=== PATIENT | male | born 1945 | race Caucasian/White ===

== ENCOUNTER 2019-03-11 06:41 | Emergency (ER) | payer OTHER ==
[~2019-03-11] VITALS: Ht 175.2 cm; Wt 81.6 kg
[~2019-03-11 06:41] MED LIST: CEPHALEXIN500 M1 PO
[2019-03-11] MEDS ORDERED: PENICILLIN-VK500 MG PO (07:25)
== END 2019-03-11 07:36 | disposition home or self-care (01) ==
LOC: ED 06:41
DX: K04.7 Periapical abscess without sinus (principal); M54.9 Dorsalgia, unspecified; R51 Headache; R61 Generalized hyperhidrosis; I10 Essential (primary) hypertension; E11.9 Type 2 diabetes mellitus without complications; F17.200 Nicotine dependence, unspecified, uncomplicated; Z88.6 Allergy status to analgesic agent

== ENCOUNTER 2019-03-13 09:10 | Inpatient (IN) | payer OTHER ==
[~2019-03-13] VITALS: Ht 175.2 cm; Wt 74.9 kg
--- NOTE | ~2019-03-13 | EKG ---
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
--- NOTE | ~2019-03-13 | CON ---
[place], [place] REPORT OF CONSULTATION NAME: SUSY KHOURY UNIT #: [id number] ROOM: 403 DOCTOR: TY FERRO DMD BIRTHDATE: [birth year] DOS: REASON FOR CONSULTATION: Lower anterior facial swelling. On exam, mild lower anterior facial swelling. The patient complained of extreme pain and tenderness. Denies any difficulty breathing or swallowing. Intraoral exam shows generalized poor oral condition with multiple areas of extreme decay, small buccal space swelling in the area of tooth #27. Teeth #26 and #27 extremely tender to palpation. Discussed treatment needed including root canal therapy or extractions. Recommend the patient stay on antibiotic therapy until discharge and seek treatment at a private dentist's office. TY FERRO DMD CM:CONSTR:REPORT OF CONSULTATION [id number] 03/27/19 0614 interface
[~2019-03-13 09:10] MED LIST changes: +PENICILLIN-VK500 MG PO
[2019-03-13 09:12] VITALS: BP 192/85
[2019-03-13 09:47] LABS: BASO # 0.1 10*3/uL (0.0-0.1); BASO % 0.4 % (0.0-1.0); EOS # 0.1 10*3/uL (0.0-0.4); EOS % 0.6 % (1.0-4.0); HEMATOCRIT 40.9 % (42.0-52.0); HEMOGLOBIN 13.7 g/dl (14.0-18.0); LYMPH % 6.5 % (27.0-41.0); MEAN CELL VOLUME 97.8 fl (80.0-94.0); MEAN CORPUSCULAR HGB 32.8 pg (27.0-31.0); MEAN CORPUSCULAR HGB CONC 33.5 g/dl (33.0-37.0); MEAN PLATELET VOLUME 9.9 fl (9.6-12.3); MONO # 1.4 10*3/uL (0.1-1.0); MONO % 8.8 % (3.0-9.0); NEUT # 13.1 10*3/uL (2.3-7.9); NEUT % 83.3 % (47.0-73.0); PLATELET COUNT AUTOMATED 226 10*3/uL (130-400); RED BLOOD COUNT 4.18 10*6/uL (4.50-5.90); RED CELL DISTRI WIDTH 12.2 % (0-14.5); WHITE BLOOD COUNT 15.7 10*3/uL (4.8-10.8)
[2019-03-13 09:59] LABS: INTERNATIONAL NORM RATIO 0.9 (2.0-3.5)
[2019-03-13 10:08] LABS: ALBUMIN 2.6 gm/dl (3.1-4.5); ALKALINE PHOSPHATASE 70 U/L (45-117); BUN 16 mg/dl (7-24); CHLORIDE 101 mmol/L (98-107); CREATININE 1.36 mg/dL (0.70-1.30); LIPASE 85 U/L (73-393); POTASSIUM 3.6 mmol/L (3.5-5.1); SGOT/AST 12 IU/L (3-35); SGPT/ALT 14 U/L (12-78); SODIUM 136 mmol/L (136-145); TOTAL PROTEIN 6.6 gm/dL (6.4-8.2)
[2019-03-13 10:10] LABS: TROPONIN I < 0.015 ng/ml (<0.045)
[2019-03-13 10:14] VITALS: BP 179/78
[2019-03-13 10:55] VITALS: BP 164/96
[2019-03-13 11:55] LABS: BILIRUBIN NEGATIVE (NEGATIVE); BLOOD 2+ (NEGATIVE); CLARITY SL CLOUDY (CLEAR); COLOR YELLOW (YELLOW); GLUCOSE NEGATIVE (NEGATIVE); KETONE 1+ (NEGATIVE); LEUKO ESTERASE NEGATIVE (NEGATIVE); NITRITE NEGATIVE (NEGATIVE); SPECIFIC GRAVITY 1.025 (1.005-1.030); UROBILINOGEN 0.2 E.U./dl (0.2-1.0)
[2019-03-13 12:05] VITALS: BP 155/70
[2019-03-13 12:29] LABS: BACTERIA 2+
--- NOTE | 2019-03-13 12:57 | NUR ---
A 73, admitted to , under the services of ROBIN Huerta DO with a diagnosis of DENTAL INFECTION SEPSIS. Chief complaint is DENTAL PAIN . Patient arrived via bed from ER. Monitor applied. Initial assessment completed. Vital signs taken and recorded. ROBIN HUERTA DO notified of admission to the unit. Orders received. See assessment for past medical history, medications and allergies. Patient and/or family oriented to unit[facility]. Clothing/patient valuable form completed. LISA IRVING
[2019-03-13 13:31] VITALS: BP 172/75
--- NOTE | 2019-03-13 15:39 | NUR ---
CONTACTED FOR DENTAL ABCESS. HE WILL BE IN TO SEE PT IN THE MORNING.
--- NOTE | 2019-03-13 15:56 | NUR ---
ID ANSWERING SERVICE NOTIFIED OF CONSULT.
--- NOTE | 2019-03-13 16:06 | NUR ---
NOTIFIED OF CONSULT WILL SEE PATIENT
--- NOTE | 2019-03-13 16:08 | NUR ---
BOTIFIED THAT CT CHEST/ABD/PELVIS CANNOT BE DONE FOR 24HRS D/T PATIENTS ALREADY RECIEVING IVP DYE TODAY FOR CT MAXILLA
[2019-03-13] MEDS ORDERED: LIPITOR80 MG PO (16:26)
[2019-03-13] MEDS ORDERED: METOPROLOL SUCC50 M1 PO (16:28)
[2019-03-13] MEDS ORDERED: LISINOPRIL40 MG PO (16:29)
[2019-03-13] MEDS ORDERED: GABAPENTIN400 MG PO (16:30)
[2019-03-13] MEDS ORDERED: FERROUS SULFAT325 MG PO (16:30)
[2019-03-13] MEDS ORDERED: ASPIRIN CHEWABL81 MG PO (16:31)
[2019-03-13] MEDS ORDERED: FUROSEMIDE40 MG PO (16:31)
[2019-03-13] MEDS ORDERED: AMLODIPINE BESY10 MG PO (16:32)
[2019-03-13] MEDS ORDERED: GLUCOPHAGE1000 MG PO (16:32)
[2019-03-13] MEDS ORDERED: CLONIDINE0.2 MG PO (16:33)
[2019-03-13] MEDS ORDERED: INDERAL XL80 MG PO (16:35)
--- NOTE | 2019-03-13 18:00 | NUR ---
NOTIFIED OF ELEVATED BP OK TO GIVE PO LOPRESSOR EARLY.
[2019-03-13 20:00] VITALS: BP 162/72
--- NOTE | 2019-03-13 22:48 | NUR ---
24 HOUR CHART CHECK DONE
[2019-03-14] VITALS: BP 164/57
[2019-03-14 06:49] LABS: BASO % 0.3 % (0.0-1.0); EOS # 0.2 10*3/uL (0.0-0.4); EOS % 1.4 % (1.0-4.0); HEMATOCRIT 41.6 % (42.0-52.0); HEMOGLOBIN 13.4 g/dl (14.0-18.0); LYMPH % 17.1 % (27.0-41.0); MEAN CORPUSCULAR HGB 32.2 pg (27.0-31.0); MEAN CORPUSCULAR HGB CONC 32.2 g/dl (33.0-37.0); MEAN PLATELET VOLUME 10.1 fl (9.6-12.3); MONO # 0.8 10*3/uL (0.1-1.0); NEUT # 8.6 10*3/uL (2.3-7.9); NEUT % 73.9 % (47.0-73.0); PLATELET COUNT AUTOMATED 270 10*3/uL (130-400); RED BLOOD COUNT 4.16 10*6/uL (4.50-5.90); RED CELL DISTRI WIDTH 12.3 % (0-14.5); WHITE BLOOD COUNT 11.7 10*3/uL (4.8-10.8)
[2019-03-14 07:14] LABS: ALBUMIN 2.4 gm/dl (3.1-4.5); ALKALINE PHOSPHATASE 62 U/L (45-117); BUN 14 mg/dl (7-24); CHLORIDE 104 mmol/L (98-107); CHOLESTEROL 118 mg/dL (<200); CREATININE 1.25 mg/dL (0.70-1.30); HDL CHOLESTEROL 28 mg/dl (40-60); LDL CHOLESTEROL 48 mg/dL (9-159); PHOSPHOROUS 3.2 mg/dL (2.5-4.9); POTASSIUM 2.9 mmol/L (3.5-5.1); SGOT/AST 6 IU/L (3-35); SGPT/ALT 12 U/L (12-78); SODIUM 140 mmol/L (136-145); TOTAL PROTEIN 6.5 gm/dL (6.4-8.2); TRIGLYCERIDES 211 mg/dl (<150); VLDL CHOLESTEROL 42 mg/dL (6-40)
[2019-03-14 07:43] LABS: ACT PARTIAL THROMBO TIME 29.9 SECONDS (20.0-32.1); INTERNATIONAL NORM RATIO 0.9 (2.0-3.5)
--- NOTE | 2019-03-14 08:00 | NUR ---
CT dept notified that prep was started.
--- NOTE | 2019-03-14 08:08 | NUR ---
NOTIFIED PHYSICAN OF POTASSIUM OF 2.9.
--- NOTE | 2019-03-14 09:00 | NUR ---
Finishing Lab Technician in to talk to patient. Patient states lives at home with alone . There are few steps in the home. Physician: doug slater [facility]acy: [facility] Home health services: none Patient's level of ADLs: INDEPENDENT Patient has working utilities: all working DME: none Follow-up physician's appointment after d/c: will be made by hospitalist nurse director upon discharge Does patient want to access PORTAL?: no Discharge plan discussed with patient, he states he lives at home, is independent in adls and ambulation, drives, he states he will be returning home when able and denies any home needs. NURIA BOSTON
--- NOTE | 2019-03-14 09:05 | NUR ---
PHYSICAL THERAPY Nursing screen received and chart review complete. Please refer PT services if decline in functional mobility presents. Thank you. Cheryl Molina,PT,DPT.
[2019-03-14 09:11] LABS: VITAMIN D, 25-HYDROXY 20.4 ng/mL (30-100)
[2019-03-14 12:00] VITALS: BP 164/60
--- NOTE | 2019-03-14 12:45 | NUR ---
NOTIFIED OF CT RESULTS.
--- NOTE | 2019-03-14 14:29 | NUR ---
Patient refusing echo today, wanted to eat. Will amend echo order for tomorrow 03/15/19.
[2019-03-14 16:00] VITALS: BP 164/63
[2019-03-14 20:00] VITALS: BP 152/70
--- NOTE | 2019-03-14 21:33 | NUR ---
TYLENOL GIVEN PER PRN ORDER FOR C/O BACK PAIN AND EAR ACHE. RATING PAIN BETWEEN 7-10. SEE EMAR. REINFORCED USE OF CALL LIGHT.
[2019-03-15] VITALS: BP 166/76
--- NOTE | 2019-03-15 01:35 | NUR ---
24 HR chart check completed.
[2019-03-15 07:54] LABS: BASO # 0.1 10*3/uL (0.0-0.1); BASO % 0.5 % (0.0-1.0); EOS # 0.3 10*3/uL (0.0-0.4); EOS % 2.9 % (1.0-4.0); HEMOGLOBIN 13.2 g/dl (14.0-18.0); LYMPH # 2.4 10*3/uL (1.3-4.4); LYMPH % 21.8 % (27.0-41.0); MEAN CELL VOLUME 99.8 fl (80.0-94.0); MEAN CORPUSCULAR HGB 32.1 pg (27.0-31.0); MEAN CORPUSCULAR HGB CONC 32.2 g/dl (33.0-37.0); MEAN PLATELET VOLUME 10.5 fl (9.6-12.3); MONO % 8.7 % (3.0-9.0); NEUT # 7.2 10*3/uL (2.3-7.9); NEUT % 65.6 % (47.0-73.0); PLATELET COUNT AUTOMATED 286 10*3/uL (130-400); RED BLOOD COUNT 4.11 10*6/uL (4.50-5.90); RED CELL DISTRI WIDTH 12.3 % (0-14.5); WHITE BLOOD COUNT 10.9 10*3/uL (4.8-10.8)
[2019-03-15 08:00] LABS: CREATININE 1.61 mg/dL (0.70-1.30); POTASSIUM 3.2 mmol/L (3.5-5.1)
--- NOTE | 2019-03-15 09:00 | NUR ---
case management visits with patient, he states he will return home when medically stable and denies any home needs
[2019-03-15 12:00] VITALS: BP 169/71
--- NOTE | 2019-03-15 12:26 | NUR ---
Nutritional Support Services Note: Dx of sepsis, htn and diabetes. Dental infection. Pt is receiving a regular diet. Eating 100% of all meals. Ht.5'9 Wt.165# No other nutrition intervention needed at this time. Will follow as needed. Abbi Brown Rdn Ld
--- NOTE | 2019-03-15 13:59 | NUR ---
PT COMPLAINED OF FEELING LIKE HE HAD A FEVER, TEMP WAS 98.4. ALSO COMPLAINED OF JAW PAIN AND WAS GIVEN PRN TYLENOL.
--- NOTE | 2019-03-15 14:30 | NUR ---
REASSESSED PT AFTER GIVING THE TYLENOL. PT STATED HE FELT A LOT BETTER NOW, 0/10 PAIN.
[2019-03-15 16:00] VITALS: BP 135/67
--- NOTE | 2019-03-15 16:00 | NUR ---
PT REFUSED BLOOD SUGARS AT 1100 AND NOW. PT STATES "MY FINGERS ARE TOO SORE."
[2019-03-15 20:00] VITALS: BP 143/60
--- NOTE | 2019-03-15 21:45 | NUR ---
PT REFUSED TO ALLOW BS CHECK. STATES HIS FINGERS ARE GETTING TO SORE.
--- NOTE | 2019-03-15 22:00 | NUR ---
MEDICATED WITH TYLENOL PER PRN ORDER FOR C/O FACE PAIN,
--- NOTE | 2019-03-15 23:30 | NUR ---
PATIENT IN BED SLEEPING. BREATHING IS EASY AND REGULAR WITHOUT DISTRESS. AROUSES EASILY. NO COMPLAINTS. CALL LIGHT WITHIN REACH, WILL MONITOR
[2019-03-16] VITALS: BP 148/68
--- NOTE | 2019-03-16 01:27 | NUR ---
24 HR chart check completed.
--- NOTE | 2019-03-16 06:26 | NUR ---
PATIENT CONTINUES TO REFUSE BLOOD SUGAR CHECKS.
[2019-03-16 06:38] LABS: ALBUMIN 2.3 gm/dl (3.1-4.5); CREATININE 1.51 mg/dL (0.70-1.30); POTASSIUM 3.8 mmol/L (3.5-5.1); TOTAL PROTEIN 6.6 gm/dL (6.4-8.2)
--- NOTE | 2019-03-16 07:44 | NUR ---
BENIGNO MADE RN AWARE OF PATIENTS ELEVATED BLOOD PRESSURE READING, RN IN TO CHECK PATIENT, MANUAL BP READING AT THIS TIME IS 166/78 PATIENT STATES HIS BP USUALLY RUNS HIGHER IN THE AM BEFORE HE TAKES HIS MEDICATIONS, AND IS ASKING TO HAVE MEDICATIONS AT THIS TIME, RN TO ADMINISTER MEDICATIONS PER DRS ORDERS
--- NOTE | 2019-03-16 07:46 | NUR ---
RESIDENTS IN TO SEE PATIENT AT THIS TIME.
[2019-03-16 08:00] VITALS: BP 166/78
--- NOTE | 2019-03-16 09:00 | NUR ---
case management visits with patient, he states he is hoping to be returning home today, patient denies any home needs, case management will follow
[2019-03-16 11:39] VITALS: BP 150/62
--- NOTE | 2019-03-16 14:00 | NUR ---
DR ANGULO IN TO SEE PATIENT
--- NOTE | 2019-03-16 14:14 | NUR ---
DR SALINAS MADE AWARE OF WHAT DR ANGULO SAID
[2019-03-16] MEDS ORDERED: AUGMENTIN 875-875 MG PO (14:31)
[2019-03-16] MEDS ORDERED: VITAMIN D5000 UNI1 PO (14:31)
--- NOTE | 2019-03-16 14:32 | NUR ---
Discharge instructions reviewed with patient/family. Patient receptive and verbalizes understanding. Follow-up care arranged. Written instructions given to patient/family. EDDA CURIEL
== END 2019-03-16 14:32 | disposition home or self-care (01) | DRG 871 ==
LOC: ED 09:10 → EDHOLD 12:25 → 4E 12:25
PROVIDERS: Internal Medicine; Nurse Practitioner Family; ADMIT Internal Medicine
DX: A41.9 Sepsis, unspecified organism (principal); N17.0 Acute kidney failure with tubular necrosis; E43 Unspecified severe protein-calorie malnutrition; K04.7 Periapical abscess without sinus; R80.9 Proteinuria, unspecified; I10 Essential (primary) hypertension; E11.42 Type 2 diabetes mellitus with diabetic polyneuropathy; E11.65 Type 2 diabetes mellitus with hyperglycemia; E87.6 Hypokalemia; D53.9 Nutritional anemia, unspecified; E78.5 Hyperlipidemia, unspecified; F17.210 Nicotine dependence, cigarettes, uncomplicated; Z71.6 Tobacco abuse counseling; Z88.6 Allergy status to analgesic agent; Z80.8 Family history of malignant neoplasm of other organs or systems; Z79.899 Other long term (current) drug therapy; Z79.82 Long term (current) use of aspirin; Z68.24 Body mass index [BMI] 24.0-24.9, adult

== ENCOUNTER 2019-09-01 21:15 | Inpatient (IN) | payer OTHER ==
[~2019-09-01] VITALS: Ht 175.2 cm; Wt 82.3 kg
[~2019-09-01 21:15] MED LIST changes: +AMLODIPINE BESY10 MG PO; +ASPIRIN CHEWABL81 MG PO; +AUGMENTIN 875-875 MG PO; +CLONIDINE0.2 MG PO; +FERROUS SULFAT325 MG PO; +FUROSEMIDE40 MG PO; +GABAPENTIN400 MG PO; +GLUCOPHAGE1000 MG PO; +INDERAL XL80 MG PO; +LIPITOR80 MG PO; +LISINOPRIL40 MG PO; +METOPROLOL SUCC50 M1 PO; +VITAMIN D5000 UNI1 PO
[2019-09-01 21:30] VITALS: BP 154/71
[2019-09-01 21:34] VITALS: BP 154/74
[2019-09-01 21:46] LABS: BASO # 0.1 10*3/uL (0.0-0.1); BASO % 0.7 % (0.0-1.0); EOS # 0.3 10*3/uL (0.0-0.4); EOS % 1.5 % (1.0-4.0); LYMPH # 2.1 10*3/uL (1.3-4.4); LYMPH % 11.6 % (27.0-41.0); MEAN CORPUSCULAR HGB 32.3 pg (27.0-31.0); MEAN CORPUSCULAR HGB CONC 33.3 g/dl (33.0-37.0); MONO # 1.2 10*3/uL (0.1-1.0); MONO % 6.7 % (3.0-9.0); NEUT # 14.2 10*3/uL (2.3-7.9); NEUT % 79.1 % (47.0-73.0); PLATELET COUNT AUTOMATED 264 10*3/uL (130-400); RED BLOOD COUNT 4.33 10*6/uL (4.50-5.90); RED CELL DISTRI WIDTH 12.5 % (0-14.5); WHITE BLOOD COUNT 17.9 10*3/uL (4.8-10.8)
[2019-09-01 22:08] LABS: ACT PARTIAL THROMBO TIME 29.3 SECONDS (20.0-32.1); INTERNATIONAL NORM RATIO 0.9 (2.0-3.5)
[2019-09-01 22:09] LABS: ALBUMIN 3.2 gm/dl (3.1-4.5); ALKALINE PHOSPHATASE 92 U/L (45-117); BUN 17 mg/dl (7-24); CHLORIDE 101 mmol/L (98-107); POTASSIUM 3.9 mmol/L (3.5-5.1); SGOT/AST 25 IU/L (3-35); SGPT/ALT 47 U/L (12-78); SODIUM 134 mmol/L (136-145)
--- NOTE | 2019-09-01 22:14 | NUR ---
THE PT WAS GIVEN A URINAL.
[2019-09-01 22:37] LABS: TROPONIN I < 0.015 ng/ml (<0.045)
[2019-09-01 23:12] LABS: BILIRUBIN NEGATIVE (NEGATIVE); BLOOD 2+ (NEGATIVE); CLARITY CLEAR (CLEAR); COLOR YELLOW (YELLOW); GLUCOSE TRACE (NEGATIVE); KETONE NEGATIVE (NEGATIVE); LEUKO ESTERASE NEGATIVE (NEGATIVE); NITRITE NEGATIVE (NEGATIVE); UROBILINOGEN 0.2 E.U./dl (0.2-1.0)
--- NOTE | 2019-09-01 23:21 | NUR ---
NURSE TO NURSE REPORT GIVEN TO THIS RN.PT RESTING IN BED WITH FAMILY AT BEDSIDE.FLUIDS INFUSING.
[2019-09-01 23:29] LABS: WBC 0-2 wbc/hpf (0-5)
[2019-09-02] VITALS (9 sets, daily range): BP systolic 104–176; BP diastolic 48–80
--- NOTE | 2019-09-02 01:37 | NUR ---
PT FAMILY UPDATED ON PT ADMISSION AND ROOM ASSIGNMENT.
--- NOTE | 2019-09-02 01:38 | NUR ---
PER GAUDENCIO CASTRO, DR CONNELL HAS BEEN CONTACTED AND IS AWARE OF THE PATIENT AND REQUESTS NOT TO BE CALLED AGAIN THIS EVENING.
--- NOTE | 2019-09-02 02:31 | NUR ---
DR. BRITO AWARE OF LACTIC ACID OF 2.8.
--- NOTE | 2019-09-02 02:40 | NUR ---
A 74, admitted to , under the services of MEGAN Sosa DO with a diagnosis of ACUTE APPENDICITIS. Chief complaint is ABDOMINAL PAIN. Patient arrived via stretcher from ER. Monitor applied. Initial assessment completed. Vital signs taken and recorded. MEGAN SOSA DO notified of admission to the unit. Orders received. See assessment for past medical history, medications and allergies. Patient and/or family oriented to 4E unit. visitation policy reviewed. Clothing/patient valuable form completed. KACY SUBRAMANIAN
--- NOTE | 2019-09-02 02:48 | NUR ---
PT DENIES ANY WOUNDS.
--- NOTE | 2019-09-02 02:56 | NUR ---
PRN MORPHINE GIVEN FOR PATIENT C/O RIGHT SIDED ABDOMINAL PAIN/TENDERNESS RATING A 10/10. CALL LIGHT IS WITHIN REACH, WILL MONITOR EFFECT.
[2019-09-02 05:08] LABS: BUN 13 mg/dl (7-24); CHLORIDE 107 mmol/L (98-107); CREATININE 1.35 mg/dL (0.70-1.30); POTASSIUM 3.8 mmol/L (3.5-5.1); SODIUM 139 mmol/L (136-145)
[2019-09-02 05:52] LABS: BASO # 0.1 10*3/uL (0.0-0.1); BASO % 0.5 % (0.0-1.0); EOS # 0.1 10*3/uL (0.0-0.4); EOS % 0.9 % (1.0-4.0); HEMATOCRIT 39.6 % (42.0-52.0); HEMOGLOBIN 13.2 g/dl (14.0-18.0); LYMPH # 2.2 10*3/uL (1.3-4.4); LYMPH % 13.8 % (27.0-41.0); MEAN CELL VOLUME 97.3 fl (80.0-94.0); MEAN CORPUSCULAR HGB 32.4 pg (27.0-31.0); MEAN CORPUSCULAR HGB CONC 33.3 g/dl (33.0-37.0); MEAN PLATELET VOLUME 10.2 fl (9.6-12.3); MONO # 1.2 10*3/uL (0.1-1.0); MONO % 7.5 % (3.0-9.0); PLATELET COUNT AUTOMATED 248 10*3/uL (130-400); RED BLOOD COUNT 4.07 10*6/uL (4.50-5.90); RED CELL DISTRI WIDTH 12.6 % (0-14.5); WHITE BLOOD COUNT 15.6 10*3/uL (4.8-10.8)
[2019-09-02 06:24] LABS: ACT PARTIAL THROMBO TIME 30.8 SECONDS (20.0-32.1); INTERNATIONAL NORM RATIO 0.9 (2.0-3.5)
--- NOTE | 2019-09-02 06:58 | NUR ---
DR. CONNELL CALLED IN, PATIENT IS TO GO FOR [facility], POSSIBLY OPEN AROUND 10AM TODAY.
--- NOTE | 2019-09-02 07:16 | NUR ---
24 HR chart check completed.
--- NOTE | 2019-09-02 09:00 | NUR ---
DR CONNELL HERE TO ASSESS PATIENT AND DISCUSS PLAN OF CARE
--- NOTE | 2019-09-02 09:20 | NUR ---
MEDICATED WITH MORPHINE IV PER PRN ORDER FOR COMPLAINTS OF ABD PAIN RATING A 10. CALL LIGHT WITHIN REACH. WILL MONITOR FOR EFFECTIVENESS
--- NOTE | 2019-09-02 09:35 | NUR ---
TRANSPORTED OFF FLOOR FOR SURGERY
--- NOTE | 2019-09-02 12:49 | NUR ---
RETURNS FROM SURGERY. AWAKE BUT DROWSY. RESPIRATIONS EASY. VSS. IV FLUIDS MAINTAINED. CALL LIGHT WITHIN REACH. SIGNIFICANT OTHER PRESENT AT BEDSIDE.
[2019-09-02] MEDS ORDERED: ECOTRIN325 M1 PO (13:35)
[2019-09-02] MEDS ORDERED: NEURONTIN600 MG PO (13:38)
[2019-09-02] MEDS ORDERED: GLUCOPHAGE500 M1 PO (13:40)
[2019-09-02] MEDS ORDERED: LIPITOR40 MG PO (13:41)
[2019-09-02] MEDS ORDERED: PROPRANOLOL HCL80 M1 PO (13:47)
[2019-09-02] MEDS ORDERED: VITAMIN B121000 MC1 PO (13:48)
[2019-09-02] MEDS ORDERED: VITAMIN B COMP1 EAC1 PO (13:50)
--- NOTE | 2019-09-02 14:00 | NUR ---
MEDS EFFECTIVE. SLEEPING
--- NOTE | 2019-09-02 15:00 | NUR ---
PATIENT REMAINS IN BED, LAYING ON LEFT SIDE. ENCOURAGED TO GET OOB, DECLINES STATING "I'M SICK". EDUCATED REGARDING NEED TO MOVE TO EXPEL GAS AND RELIEVE GAS, CONTINUES TO DECLINE STATING "I'M SICK."
--- NOTE | 2019-09-02 17:00 | NUR ---
CONTINUES TO DECLINE OOB. ALSO DECLINES BSG CHECK
--- NOTE | 2019-09-02 20:44 | NUR ---
PATIENT HAS C/O NAUSEA AND PAIN RATED 9/10 TO SURGICAL SITES. ABDOMEN IS DISTENDED AND FIRM, SX INCISIONS WELL APPROXIMATED WITH SOME ECCHYMOSIS TO UMBILICAL SITE, NORMOACTIVE BOWEL SOUNDS X4. PATIENT GIVEN ZOFRAN AND MORPHONE PER PRN ORDERS AND ADVISED TO PASS GAS. PROVIDED WITH COOL RAG TO FOREHEAD FOR COMFORT. CALL LIGHT IN REACH.
--- NOTE | 2019-09-02 21:29 | NUR ---
PRN MEDICATIONS APPEAR EFFECTIVE, PATIENT IS RESTING WITH EYES CLOSED, NONLABORED RESPIRATIONS ON 3L NC
[2019-09-03] VITALS (15 sets, daily range): BP systolic 109–156; BP diastolic 47–83
--- NOTE | 2019-09-03 01:07 | NUR ---
PT SLEEPING. SNORING RESPIRATIONS EASY AND REGULAR, CALL LIGHT IN REACH.
--- NOTE | 2019-09-03 06:33 | NUR ---
DR HOLLEY NOTIFIED PT BLADDER SCAN FOR 170CC AND PT STATES THAT HE HAS NOT BEEN ABLE TO URINATE.
[2019-09-03 06:48] LABS: ALBUMIN 2.1 gm/dl (3.1-4.5); CREATININE 2.58 mg/dL (0.70-1.30); PHOSPHOROUS 2.9 mg/dL (2.5-4.9); TOTAL PROTEIN 5.5 gm/dL (6.4-8.2)
[2019-09-03 06:54] LABS: POTASSIUM 4.8 mmol/L (3.5-5.1)
--- NOTE | 2019-09-03 07:35 | NUR ---
Occupational Therapy: Screen and referral received for occupational therapy evaluation. THank you, Anika Jones OTR/L
--- NOTE | 2019-09-03 07:43 | NUR ---
PHYSICAL THERAPY Screen and PT eval received will follow thank you Leandra Brenner PT
--- NOTE | 2019-09-03 08:05 | NUR ---
called to review new orders he placed. Also spoke about the nurse to nurse report I received regarding no recorded urine output since mccarthy was removed. Will follow up and bladder scan per physician.
[2019-09-03 08:54] LABS: HEMATOCRIT 24.7 % (42.0-52.0); HEMOGLOBIN 7.9 g/dl (14.0-18.0); MEAN CELL VOLUME 99.6 fl (80.0-94.0); MEAN CORPUSCULAR HGB 31.9 pg (27.0-31.0); PLATELET COUNT AUTOMATED 226 10*3/uL (130-400); RED BLOOD COUNT 2.48 10*6/uL (4.50-5.90); RED CELL DISTRI WIDTH 12.9 % (0-14.5); WHITE BLOOD COUNT 17.9 10*3/uL (4.8-10.8)
--- NOTE | 2019-09-03 09:00 | NUR ---
Bunch Maker Hand in to talk to patient. Patient states lives at home with alone. There are no steps in the home. Physician: ciro leigh [facility] [place] [facility]: none Patient's level of ADLs: INDEPENDENT Patient has working utilities: all working DME: none Follow-up physician's appointment after d/c: will be made by hospitalist nurse director upon discharge Does patient want to access PORTAL?: no Discharge plan discussed with patient, forest nursery supervisor present, patient states he lives at home alone, with help from his forest nursery supervisor, he states he is independent in adls and ambulation, drives, he states he will return home when medically stable and denies any home need, , case management will follow. NURIA BOSTON
[2019-09-03 09:34] LABS: PLATELET SUFFICIENCY NORMAL (NORMAL); POLYCHROMASIA SLIGHT; TOTAL CELLS COUNTED 100 #CELLS
--- NOTE | 2019-09-03 13:00 | NUR ---
Bladder scanned patient for 402ml. Encouraged patient to change positions and when he sat up he said "it feels like I have to go." Asked patient to sit on commode and see if he can void on his own to avoid getting cathed. When patient ambulated he began belching and coughing. Called to updated on patients status. Per physician, let patient try to void on his own.
--- NOTE | 2019-09-03 13:00 | NUR ---
Patient refuses blood sugar checks.
--- NOTE | 2019-09-03 13:20 | NUR ---
Was called to patients room. notified me that patient voided and returned to bed with her assistance. Student nurse scanned for PVR.
--- NOTE | 2019-09-03 13:38 | NUR ---
PHYSICAL THERAPY Attempted to see pt for evaluation pt declining at this time states he just returned to the bed from the bathroom and is feelin very nauseated. Spoke with robert barreto above and that pt is nauseated will follow in the AM Leandra Brenner PT
--- NOTE | 2019-09-03 13:38 | NUR ---
Occupational Therapy evaluation offered, but patient declined w/ c/o nausea. OTR will recheck at a later date per patient's request. Chiqui James OTR/l
--- NOTE | 2019-09-03 13:55 | NUR ---
called for follow to check patients voiding status. Updated him and said I would call back with PVR amount.
--- NOTE | 2019-09-03 14:02 | NUR ---
Spoke with regarding patients PVR of 120ml.
--- NOTE | 2019-09-03 14:29 | NUR ---
Nutritional Support Services Note: Pt is s/p appendectomy. Tolerating po intake, although he states he does not have an appetite right now. He receives a regular diet as ordered. Will provide small snacks throught out the day. will continue to follow. Abbi Brown Rdn Ld
--- NOTE | 2019-09-03 16:53 | NUR ---
Morphine given per patient request for c/o abdominal pain and Zofran given per patient request for c/o nausea. Will monitor.
--- NOTE | 2019-09-03 17:30 | NUR ---
Morphine and Zofran effective. Patient satisfied with no signs of distress.
--- NOTE | 2019-09-03 18:30 | NUR ---
Notified of critical Hgb. See labs. No new orders at this time, physician to review.
[2019-09-03 18:33] LABS: HEMATOCRIT 21.8 % (42.0-52.0); MEAN CELL VOLUME 101.4 fl (80.0-94.0); MEAN CORPUSCULAR HGB 32.1 pg (27.0-31.0); MEAN CORPUSCULAR HGB CONC 31.7 g/dl (33.0-37.0); MEAN PLATELET VOLUME 9.7 fl (9.6-12.3); PLATELET COUNT AUTOMATED 188 10*3/uL (130-400); RED BLOOD COUNT 2.15 10*6/uL (4.50-5.90)
--- NOTE | 2019-09-03 18:33 | NUR ---
Patient up in chair to eat dinner. Tolerated well.
[2019-09-03 18:37] LABS: HEMOGLOBIN 6.9 g/dl (14.0-18.0)
[2019-09-03 18:56] LABS: TOTAL CELLS COUNTED 100 #CELLS
[2019-09-03 18:58] LABS: PLATELET SUFFICIENCY NORMAL (NORMAL)
[2019-09-04] VITALS (13 sets, daily range): BP systolic 120–179; BP diastolic 52–83
[2019-09-04 02:24] LABS: BASO % 0.2 % (0.0-1.0); EOS % 0.1 % (1.0-4.0); HEMATOCRIT 21.9 % (42.0-52.0); HEMOGLOBIN 7.1 g/dl (14.0-18.0); LYMPH # 1.5 10*3/uL (1.3-4.4); LYMPH % 9.4 % (27.0-41.0); MEAN CORPUSCULAR HGB 31.6 pg (27.0-31.0); MEAN CORPUSCULAR HGB CONC 32.4 g/dl (33.0-37.0); MEAN PLATELET VOLUME 9.6 fl (9.6-12.3); MONO # 1.5 10*3/uL (0.1-1.0); MONO % 9.3 % (3.0-9.0); NEUT # 12.8 10*3/uL (2.3-7.9); NEUT % 80.2 % (47.0-73.0); PLATELET COUNT AUTOMATED 167 10*3/uL (130-400); RED BLOOD COUNT 2.25 10*6/uL (4.50-5.90); RED CELL DISTRI WIDTH 13.9 % (0-14.5); WHITE BLOOD COUNT 15.9 10*3/uL (4.8-10.8)
[2019-09-04 02:25] LABS: MEAN CELL VOLUME 97.3 fl (80.0-94.0)
--- NOTE | 2019-09-04 05:00 | NUR ---
PATIENT HYPOXIC DURING BLOOD TRANSFUSION. O2 SAT DROPPED DOWN TO LOW 80'S. DR. FLOR INTO SEE PATIENT. RESPIRATORY IN TO SEE PATIENT ALSO. NEW ORDER FOR DR. TANNER CONSULT FOR HYPOXIA DURING TRANSFUSION AND PATIENT PUT ON NON-REBREATHER MASK TO FINISH INFUSING BLOOD. WILL CONTINUE TO MONITOR.
--- NOTE | 2019-09-04 06:18 | NUR ---
DR. TANNER NOTIFIED OF CONSULT FOR PATIENT FOR HYPOXIA AFTER BLOOD TRANSFUSION.
--- NOTE | 2019-09-04 06:45 | NUR ---
BLOOD TRANSFUSION FINISHED. PATIENT REMAINS ON NON-REBREATHER AT 100% UNTIL RESPIRATORY REASSESES. NO SIGNS OR SYMPTOMS OF DISTRESS AT THIS TIME. WILL CONTINUE TO MONITOR. CALL LIGHT IN REACH.
--- NOTE | 2019-09-04 08:30 | NUR ---
patient moved to CCU, case management will see at another time
--- NOTE | 2019-09-04 08:43 | NUR ---
DR VILLA HERE - PT IN RADIOLOGY
--- NOTE | 2019-09-04 08:54 | NUR ---
PT UP IN CHAIR AFTER KUB - DR KWAN HERE - PT ENCOURAGED TO TAKE DEEP BREATHS & BLOW IT OUT
[2019-09-04 09:24] LABS: BASO % 0.3 % (0.0-1.0); EOS % 0.3 % (1.0-4.0); HEMATOCRIT 25.2 % (42.0-52.0); HEMOGLOBIN 8.2 g/dl (14.0-18.0); LYMPH # 1.5 10*3/uL (1.3-4.4); LYMPH % 9.3 % (27.0-41.0); MEAN CELL VOLUME 95.8 fl (80.0-94.0); MEAN CORPUSCULAR HGB 31.2 pg (27.0-31.0); MEAN CORPUSCULAR HGB CONC 32.5 g/dl (33.0-37.0); MEAN PLATELET VOLUME 9.8 fl (9.6-12.3); MONO # 1.2 10*3/uL (0.1-1.0); MONO % 7.6 % (3.0-9.0); NEUT # 12.9 10*3/uL (2.3-7.9); NEUT % 81.7 % (47.0-73.0); PLATELET COUNT AUTOMATED 168 10*3/uL (130-400); RED BLOOD COUNT 2.63 10*6/uL (4.50-5.90); WHITE BLOOD COUNT 15.7 10*3/uL (4.8-10.8)
[2019-09-04 09:55] LABS: CREATININE 2.67 mg/dL (0.70-1.30)
--- NOTE | 2019-09-04 10:38 | NUR ---
PHYSICAL THERAPY Pt transfered to [facility]- with Hypoxia after blood transfusion will require new orders for PT when medically stable, thank you Leandra Brenner PT
--- NOTE | 2019-09-04 11:00 | NUR ---
Occupational therapy received when patient was admitted to the fourth floor. Patient has since been admitted to the ICCU. Will need new orders when patient is medically appropriate. Thank you. Gogo Hidalgo, OTR/L
--- NOTE | 2019-09-04 12:05 | NUR ---
PATIENT INSTRUCTED ON FLUTTER Q2 & I/S Q1 ACHIEVING AN INITIAL VOLUME OF 1000 X 12 X 1, GOOD EFFORT.
--- NOTE | 2019-09-04 12:11 | NUR ---
PLACED ON NC5L AFTER UP TO BSC INDEPENDENTLY TO VOID LARGE AMOUNT
--- NOTE | 2019-09-04 12:16 | NUR ---
PLACE ON NC6L HIGH FLOW WITH SATS 88-91%.. SITTING UP IN CHAIR - FAMILY HERE
--- NOTE | 2019-09-04 14:49 | NUR ---
SLEEPING IN BED AFTER UP IN CHAIR FOR 6 HOURS
--- NOTE | 2019-09-04 15:42 | NUR ---
Shift chart check completed.
[2019-09-04 16:03] LABS: ABG BASE EXCESS -3.5 mmol/L (-2.0-2.0); ARTERIAL BLOOD GAS PH 7.361 (7.35-7.45)
[2019-09-04 16:17] LABS: BASO % 0.3 % (0.0-1.0); EOS # 0.3 10*3/uL (0.0-0.4); EOS % 1.6 % (1.0-4.0); HEMOGLOBIN 8.4 g/dl (14.0-18.0); LYMPH # 1.7 10*3/uL (1.3-4.4); LYMPH % 10.9 % (27.0-41.0); MEAN CELL VOLUME 96.3 fl (80.0-94.0); MEAN CORPUSCULAR HGB 31.1 pg (27.0-31.0); MEAN CORPUSCULAR HGB CONC 32.3 g/dl (33.0-37.0); MONO # 1.1 10*3/uL (0.1-1.0); MONO % 6.8 % (3.0-9.0); NEUT # 12.3 10*3/uL (2.3-7.9); NEUT % 79.9 % (47.0-73.0); PLATELET COUNT AUTOMATED 173 10*3/uL (130-400); RED CELL DISTRI WIDTH 16.1 % (0-14.5); WHITE BLOOD COUNT 15.4 10*3/uL (4.8-10.8)
--- NOTE | 2019-09-04 16:18 | NUR ---
CT PREP STARTED PER PROTOCOL
[2019-09-04 16:31] LABS: ALBUMIN 2.1 gm/dl (3.1-4.5); CREATININE 2.64 mg/dL (0.70-1.30); POTASSIUM 4.1 mmol/L (3.5-5.1)
--- NOTE | 2019-09-04 16:40 | NUR ---
PATIENT SLEEPING AFTER DRINKING 1ST BOTTLE OF CT PREP
--- NOTE | 2019-09-04 16:52 | NUR ---
DR CIRO PINEDA WITH LAB RESULTS
--- NOTE | 2019-09-04 17:45 | NUR ---
CT PREP COMPLETED
--- NOTE | 2019-09-04 18:20 | NUR ---
PATIENT RETURNED FROM CT WITH PULSE OX 74% ON HIGH FLOW NASAL CANNULA AT 15L SATS WOULD NOT HOLD DURING CT SCAN. RN SLOWLY UPPED OXYGEN TO VENTURI MASK PATIENT WAS BREATHING THROUGH HIS MOUTH. 40% VENTURI BROUGHT O2 BACK TO 89-91%... PATIENT RESP HAVE SLOWED BACK TO MID 20'S FROM UPPER 30'S UPON RETURN
--- NOTE | 2019-09-04 18:27 | NUR ---
DR VILLA CALLED TO CHECK IN ON PATIENTS - UPDATED ON PULSE OX & AWAITING CT RESULT - NEW LAB RESULTS REVIEWED
--- NOTE | 2019-09-04 19:32 | NUR ---
DR TANNER CALLED TO GIVE CT REPORT AFTER HE WAS CALLED BY [facility]. ORDER TO TRANSFER PATIENT OUT - DR VILLA CALLED AND HE SAID TO CALL SO DR ROTHMAN COULD MAKE THE ARRANGEMENTS HE AGREED WITH THE TRANSFER. DR ROTHMAN CALLED AND HE WILL MAKE TRANSFER ARRANGEMENTS. DR CONNELL THEN CALLED AND GIVEN THE REPORT & THAT THEY WANT HIM TRANSFERRED OUT - HE SAID THE PATIENT DOES NOT NEED TO BE TRANSFERRED OUT. TOLD HIM HE WOULD HAVE TO TALK TO DR ROTHMAN & GAVE HIM THE NUMBER. TRIAGE NURSE LARON CALLED AND UPDATED ON CONDITION & RESULTS AND THAT DR CONNELL DOES NOT WANT HIM TRANSFERRED
--- NOTE | 2019-09-04 19:35 | NUR ---
02 SAT DROPPED TO 73% ON 40% VENTURI MASK. RN IN WITH PATIENT. INCREASED TO 50% VENTURI AND STILL ONLY IMPROVED TO 77%, RN APPLIED [id number] AT 15L, PATIENT SLOWLY IMPROVED TO 91%
--- NOTE | 2019-09-04 20:05 | NUR ---
SPOKE WITH DR ROTHMAN REGARDING PATIENT DROPPING SATURATION, STATES THAT IF PATIENT IS OKAY AND AGREEABLE TO INTUBATION THEN INTUBATE. 2 RN'S TO VERIFY THIS WITH PATIENT, HE STATES HE IS AGREEABLE TO IT IF HE NEEDS IT.
--- NOTE | 2019-09-04 20:45 | NUR ---
Infomed consent obtained from patient by Dr. MOODY for elective intubation. Patient intubated with 8 Greenlandic endotracheal tube orally X 1 attempts. Patient sedated with CHANDA AND PROPOFOL Respiratory therapy at bedside. Crash cart with emergency drugs available. Endotracheal tube inflated with 10cc's. Lungs auscultated for equality of breath sounds. Tube secured with Tube tamer at 24 AT LIP Patient tolerated procedure . Portable chest X-ray obtained and reviewed for tube placement. Patient connected to ventilator CMV mode, 550 tidal volume, 100 FIO2, 5 PEEP, and pressure support. NATAN CAIN
--- NOTE | 2019-09-04 21:15 | NUR ---
ART LINE INSERTED BY ANESTHESIOLOGIST SHIRLENE MOODY, PATIENT TOLERATED WELL. HEPARIN PRESSURE BAG INITIATED AND CONNECTED TO MONITOR. WAVEFORM GOOD. NO ACTIVE BLEEDING FROM SITE
--- NOTE | 2019-09-04 21:35 | NUR ---
CENTRAL LINE PLACED BY ANESTHESIOLOGIST SHIRLENE MOODY. PATIENT TOLERATED WELL. DRESSING APPLIED. BLEEDING CONTROLLED.
--- NOTE | 2019-09-04 21:36 | NUR ---
VERSED 5MG GIVEN PER ORDER OF ANESTHESIOLOGIST SHIRLENE MOODY, PATIENT AGITATED, PULLING AT RESTRAINTS, BLOOD PRESSURE HAS INCREASED.
--- NOTE | 2019-09-04 22:00 | NUR ---
FOLAEY CATHETER INSERTED UNDER STERILE TECHNIQUE, PATIENT TOLERATED WELL. PLACEMENT VERIFIED BY IMMEDIATE RETURN OF PALE YELLOW URINE
[2019-09-04 22:48] LABS: ABG BASE EXCESS -3.4 mmol/L (-2.0-2.0); ARTERIAL BLOOD GAS PH 7.3 (7.35-7.45)
[2019-09-04 23:08] LABS: CREATININE 2.56 mg/dL (0.70-1.30); POTASSIUM 4.5 mmol/L (3.5-5.1); TOTAL PROTEIN 5.8 gm/dL (6.4-8.2)
--- NOTE | 2019-09-04 23:37 | NUR ---
SPOKE WITH [facility], THEY ARE REQUESTING DEMOGRAPHICS TO BE FAXED.
[2019-09-04 23:44] LABS: BASO % 0.2 % (0.0-1.0); EOS # 0.3 10*3/uL (0.0-0.4); HEMOGLOBIN 7.5 g/dl (14.0-18.0); MEAN CELL VOLUME 95.8 fl (80.0-94.0); MEAN CORPUSCULAR HGB 31.3 pg (27.0-31.0); MEAN CORPUSCULAR HGB CONC 32.6 g/dl (33.0-37.0); MEAN PLATELET VOLUME 10.3 fl (9.6-12.3); MONO # 0.9 10*3/uL (0.1-1.0); MONO % 6.2 % (3.0-9.0); NEUT # 11.6 10*3/uL (2.3-7.9); NEUT % 83.7 % (47.0-73.0); PLATELET COUNT AUTOMATED 183 10*3/uL (130-400); RED CELL DISTRI WIDTH 15.7 % (0-14.5); WHITE BLOOD COUNT 13.8 10*3/uL (4.8-10.8)
[2019-09-05 01:35] VITALS: BP 111/58
[2019-09-05 02:00] VITALS: BP 115/51
--- NOTE | 2019-09-05 02:26 | NUR ---
PATIENTS DAUGHTER BRITTANY AWARE OF TRANSFER VIA HELIC[facility]TER TO [facility].
[2019-09-05 02:28] VITALS: BP 108/61
--- NOTE | 2019-09-05 03:10 | NUR ---
[facility] HERE TO TRANSFER PATIENT, SWITCHING TO THEIR GEAR.
--- NOTE | 2019-09-05 03:15 | NUR ---
PATIENT TRANSPORTED OFF THE FLOOR VIA [facility], ALL BELONGINGS WERE SENT WITH PATIENTS DAUGHTER AND PATIENTS GIRLFRIEND.
--- NOTE | 2019-09-05 03:35 | NUR ---
REPORT CALLED TO ERIKA AT [facility]. CALL BACK NUMBER GIVEN
== END 2019-09-05 03:50 | disposition short-term general hospital (02) | DRG 338 ==
LOC: ED 21:15 → 4E 09-02 01:13 → EDHOLD 09-02 01:13 → ICCU 09-02 01:13 → 4E 09-02 01:31 → ICCU 09-04 08:11
PROVIDERS: Emergency Medicine Emergency Medical Services; Internal Medicine; Internal Medicine Critical Care Medicine; Nurse Practitioner Family; Student in an Organized Health Care Education/Training Program; Surgery; ADMIT Internal Medicine
PROC: 0DTJ4ZZ Resection of Appendix, Percutaneous Endoscopic Approach (ICD-10-PCS; principal; 2019-09-02)
PROC: 30233N1 Transfusion of Nonautologous Red Blood Cells into Peripheral Vein, Percutaneous Approach (ICD-10-PCS; 2019-09-03)
PROC: B548ZZA Ultrasonography of Superior Vena Cava, Guidance (ICD-10-PCS; 2019-09-04)
PROC: 03HY32Z Insertion of Monitoring Device into Upper Artery, Percutaneous Approach (ICD-10-PCS; 2019-09-04)
PROC: 4A133J1 Monitoring of Arterial Pulse, Peripheral, Percutaneous Approach (ICD-10-PCS; 2019-09-04)
PROC: 02HV33Z Insertion of Infusion Device into Superior Vena Cava, Percutaneous Approach (ICD-10-PCS; 2019-09-04)
PROC: 4A133B1 Monitoring of Arterial Pressure, Peripheral, Percutaneous Approach (ICD-10-PCS; 2019-09-04)
PROC: 5A1935Z Respiratory Ventilation, Less than 24 Consecutive Hours (ICD-10-PCS; 2019-09-04)
PROC: 0BH17EZ Insertion of Endotracheal Airway into Trachea, Via Natural or Artificial Opening (ICD-10-PCS; 2019-09-04)
DX: K35.32 Acute appendicitis with perforation, localized peritonitis, and gangrene, without abscess (principal); N17.0 Acute kidney failure with tubular necrosis; J96.01 Acute respiratory failure with hypoxia; J18.9 Pneumonia, unspecified organism; E87.1 Hypo-osmolality and hyponatremia; E87.2 Acidosis; K91.840 Postprocedural hemorrhage of a digestive system organ or structure following a digestive system procedure; N18.3 Chronic kidney disease, stage 3 (moderate); D64.9 Anemia, unspecified; R80.1 Persistent proteinuria, unspecified; E11.65 Type 2 diabetes mellitus with hyperglycemia; I12.9 Hypertensive chronic kidney disease with stage 1 through stage 4 chronic kidney disease, or unspecified chronic kidney disease; E11.22 Type 2 diabetes mellitus with diabetic chronic kidney disease; E11.42 Type 2 diabetes mellitus with diabetic polyneuropathy; E78.5 Hyperlipidemia, unspecified; F17.210 Nicotine dependence, cigarettes, uncomplicated; E55.9 Vitamin D deficiency, unspecified; K80.20 Calculus of gallbladder without cholecystitis without obstruction; Z71.6 Tobacco abuse counseling; Z88.5 Allergy status to narcotic agent; Z79.899 Other long term (current) drug therapy; Z79.82 Long term (current) use of aspirin; Z85.9 Personal history of malignant neoplasm, unspecified

== ENCOUNTER 2020-02-19 02:21 | Emergency (ER) | payer MEDICARE ==
[~2020-02-19] VITALS: Wt 80.5 kg
[~2020-02-19 02:21] MED LIST changes: +ECOTRIN325 M1 PO; +GLUCOPHAGE500 M1 PO; +LIPITOR40 MG PO; +NEURONTIN600 MG PO; +PROPRANOLOL HCL80 M1 PO; +VITAMIN B COMP1 EAC1 PO; +VITAMIN B121000 MC1 PO
[2020-02-19 02:44] LABS: BASO # 0.1 10*3/uL (0.0-0.1); BASO % 0.5 % (0.0-1.0); EOS # 0.1 10*3/uL (0.0-0.4); EOS % 0.6 % (1.0-4.0); HEMATOCRIT 38.6 % (42.0-52.0); LYMPH # 1.4 10*3/uL (1.3-4.4); LYMPH % 8.2 % (27.0-41.0); MEAN CELL VOLUME 97.7 fl (80.0-94.0); MEAN CORPUSCULAR HGB 30.9 pg (27.0-31.0); MEAN CORPUSCULAR HGB CONC 31.6 g/dl (33.0-37.0); MONO # 1.4 10*3/uL (0.1-1.0); NEUT # 14.3 10*3/uL (2.3-7.9); NEUT % 82.3 % (47.0-73.0); PLATELET COUNT AUTOMATED 222 10*3/uL (130-400); RED BLOOD COUNT 3.95 10*6/uL (4.50-5.90); RED CELL DISTRI WIDTH 12.9 % (0-14.5); WHITE BLOOD COUNT 17.4 10*3/uL (4.8-10.8)
[2020-02-19 02:59] LABS: ALBUMIN 3.4 gm/dl (3.1-4.5); CREATININE 2.11 mg/dL (0.70-1.30); POTASSIUM 3.2 mmol/L (3.5-5.1); TOTAL PROTEIN 7.4 gm/dL (6.4-8.2)
[2020-02-19] MEDS ORDERED: PEPCID40 MG PO (04:52)
== END 2020-02-19 05:20 | disposition home or self-care (01) ==
LOC: ED 02:21
PROVIDERS: Emergency Medicine
DX: K52.9 Noninfective gastroenteritis and colitis, unspecified (principal); A05.9 Bacterial foodborne intoxication, unspecified; I10 Essential (primary) hypertension; E11.9 Type 2 diabetes mellitus without complications; E78.5 Hyperlipidemia, unspecified; Z88.8 Allergy status to other drugs, medicaments and biological substances; Z79.899 Other long term (current) drug therapy; Z79.82 Long term (current) use of aspirin; Z79.84 Long term (current) use of oral hypoglycemic drugs

== ENCOUNTER 2020-09-28 05:47 | Emergency (ER) | payer MEDICARE ==
[~2020-09-28 05:47] MED LIST changes: +PEPCID40 MG PO
[2020-09-28 06:38] LABS: BASO # 0.1 10*3/uL (0.0-0.1); BASO % 0.6 % (0.0-1.0); EOS # 0.1 10*3/uL (0.0-0.4); EOS % 0.6 % (1.0-4.0); HEMATOCRIT 37.1 % (42.0-52.0); LYMPH # 1.1 10*3/uL (1.3-4.4); LYMPH % 11.9 % (27.0-41.0); MEAN CELL VOLUME 96.4 fl (80.0-94.0); MEAN CORPUSCULAR HGB 31.9 pg (27.0-31.0); MEAN CORPUSCULAR HGB CONC 33.2 g/dl (33.0-37.0); MEAN PLATELET VOLUME 9.6 fl (9.6-12.3); MONO # 0.8 10*3/uL (0.1-1.0); MONO % 8.1 % (3.0-9.0); NEUT # 7.5 10*3/uL (2.3-7.9); NEUT % 78.5 % (47.0-73.0); PLATELET COUNT AUTOMATED 219 10*3/uL (130-400); RED BLOOD COUNT 3.85 10*6/uL (4.50-5.90); RED CELL DISTRI WIDTH 12.6 % (0-14.5); WHITE BLOOD COUNT 9.5 10*3/uL (4.8-10.8)
[2020-09-28 06:53] LABS: ALBUMIN 2.8 gm/dl (3.1-4.5); ALKALINE PHOSPHATASE 87 U/L (45-117); BUN 17 mg/dl (7-24); CHLORIDE 102 mmol/L (98-107); CREATININE 1.78 mg/dL (0.70-1.30); LIPASE 78 U/L (73-393); POTASSIUM 3.8 mmol/L (3.5-5.1); SGOT/AST 29 IU/L (3-35); SGPT/ALT 43 U/L (12-78); SODIUM 136 mmol/L (136-145); TOTAL PROTEIN 6.9 gm/dL (6.4-8.2)
[2020-09-28 06:55] LABS: TROPONIN I < 0.015 ng/ml (<0.045)
[2020-09-28 08:01] LABS: ACT PARTIAL THROMBO TIME 26.5 SECONDS (20.0-32.1); INTERNATIONAL NORM RATIO 0.9 (2.0-3.5)
[2020-09-28 08:21] LABS: BILIRUBIN Negative (Negative); BLOOD Trace-Lysed (Negative); CLARITY Clear (Clear); COLOR Yellow (Yellow); GLUCOSE Negative (Negative); KETONE Negative (Negative); LEUKO ESTERASE Negative (Negative); NITRITE Negative (Negative); SPECIFIC GRAVITY 1.015 (1.001-1.030); UROBILINOGEN 0.2 E.U./dl (0.0-1.0)
[2020-09-28 08:34] LABS: PH 8.5 (4.5-8.0)
[2020-09-28] MEDS ORDERED: ZOFRAN4 MG PO (09:00)
== END 2020-09-28 09:03 | disposition home or self-care (01) ==
LOC: ED 05:47
PROVIDERS: Emergency Medicine
DX: K80.80 Other cholelithiasis without obstruction (principal); R19.7 Diarrhea, unspecified; E11.22 Type 2 diabetes mellitus with diabetic chronic kidney disease; I12.9 Hypertensive chronic kidney disease with stage 1 through stage 4 chronic kidney disease, or unspecified chronic kidney disease; N18.9 Chronic kidney disease, unspecified; E11.40 Type 2 diabetes mellitus with diabetic neuropathy, unspecified; F17.210 Nicotine dependence, cigarettes, uncomplicated; Z90.49 Acquired absence of other specified parts of digestive tract; Z88.6 Allergy status to analgesic agent; Z79.899 Other long term (current) drug therapy; Z79.82 Long term (current) use of aspirin; E78.5 Hyperlipidemia, unspecified; Z98.890 Other specified postprocedural states

== ENCOUNTER → 2020-10-30 | Outpatient (CLI) | payer OTHER ==
[~2020-10-30] MED LIST changes: +ZOFRAN4 MG PO
== END | disposition home or self-care (01) ==
LOC: US 10:46
PROVIDERS: ATTEND Nurse Practitioner Family
DX: N28.1 Cyst of kidney, acquired (principal); I10 Essential (primary) hypertension; E11.9 Type 2 diabetes mellitus without complications; R80.9 Proteinuria, unspecified; R94.4 Abnormal results of kidney function studies

== ENCOUNTER 2020-11-26 12:49 | Inpatient (IN) | payer MEDICARE ==
[~2020-11-26] VITALS: Ht 175.2 cm; Wt 93.5 kg
[2020-11-26 12:56] VITALS: BP 179/79
[2020-11-26 13:22] LABS: BASO # 0.1 10*3/uL (0.0-0.1); BASO % 0.4 % (0.0-1.0); EOS # 0.1 10*3/uL (0.0-0.4); EOS % 0.9 % (1.0-4.0); HEMATOCRIT 39.3 % (42.0-52.0); LYMPH # 1.9 10*3/uL (1.3-4.4); LYMPH % 13.9 % (27.0-41.0); MEAN CELL VOLUME 94.7 fl (80.0-94.0); MEAN CORPUSCULAR HGB 31.3 pg (27.0-31.0); MEAN CORPUSCULAR HGB CONC 33.1 g/dl (33.0-37.0); MEAN PLATELET VOLUME 9.9 fl (9.6-12.3); MONO # 0.6 10*3/uL (0.1-1.0); MONO % 4.3 % (3.0-9.0); NEUT # 10.9 10*3/uL (2.3-7.9); NEUT % 80.1 % (47.0-73.0); PLATELET COUNT AUTOMATED 218 10*3/uL (130-400); RED BLOOD COUNT 4.15 10*6/uL (4.50-5.90); RED CELL DISTRI WIDTH 12.4 % (0-14.5); WHITE BLOOD COUNT 13.6 10*3/uL (4.8-10.8)
[2020-11-26 13:30] VITALS: BP 162/71
[2020-11-26 13:32] LABS: ACT PARTIAL THROMBO TIME 26.4 SECONDS (20.0-32.1)
[2020-11-26 13:37] LABS: ALBUMIN 2.9 gm/dl (3.1-4.5); ALKALINE PHOSPHATASE 127 U/L (45-117); BUN 21 mg/dl (7-24); CHLORIDE 102 mmol/L (98-107); CREATININE 2.09 mg/dL (0.70-1.30); LIPASE 144 U/L (73-393); POTASSIUM 3.4 mmol/L (3.5-5.1); SGOT/AST 478 IU/L (3-35); SGPT/ALT 221 U/L (12-78); SODIUM 136 mmol/L (136-145); TOTAL PROTEIN 7.5 gm/dL (6.4-8.2)
[2020-11-26 13:38] LABS: TROPONIN I < 0.015 ng/ml (<0.045)
[2020-11-26 14:00] VITALS: BP 148/62
[2020-11-26 14:44] LABS: BILIRUBIN Negative (Negative); BLOOD Trace-Lysed (Negative); CLARITY Clear (Clear); COLOR Yellow (Yellow); GLUCOSE 1+ (Negative); KETONE Negative (Negative); LEUKO ESTERASE Negative (Negative); NITRITE Negative (Negative); PH 7.5 (4.5-8.0); UROBILINOGEN 0.2 E.U./dl (0.0-1.0)
[2020-11-26 14:56] LABS: EPITHELIAL CELLS 0-2; WBC 0-2 wbc/hpf (0-5)
[2020-11-26 19:30] VITALS: BP 166/68
[2020-11-26] MEDS ORDERED: ASPIRIN ADULT L81 M1 PO (23:26)
[2020-11-26] MEDS ORDERED: CLONIDINE1 EAC1 T (23:27)
[2020-11-26 23:30] VITALS: BP 154/74
[2020-11-27] VITALS (13 sets, daily range): BP systolic 135–208; BP diastolic 47–96
[2020-11-27 05:58] LABS: ALBUMIN 2.5 gm/dl (3.1-4.5); CREATININE 1.83 mg/dL (0.70-1.30); POTASSIUM 3.5 mmol/L (3.5-5.1); TOTAL PROTEIN 6.4 gm/dL (6.4-8.2)
[2020-11-27 06:02] LABS: THYROID STIM HORMONE (HS) 1.79 uIU/ml (0.358-4.75)
[2020-11-27 06:19] LABS: BASO # 0.1 10*3/uL (0.0-0.1); BASO % 0.6 % (0.0-1.0); EOS # 0.1 10*3/uL (0.0-0.4); EOS % 1.4 % (1.0-4.0); HEMATOCRIT 37.1 % (42.0-52.0); LYMPH # 0.8 10*3/uL (1.3-4.4); MEAN CELL VOLUME 94.4 fl (80.0-94.0); MEAN CORPUSCULAR HGB 30.8 pg (27.0-31.0); MEAN CORPUSCULAR HGB CONC 32.6 g/dl (33.0-37.0); MEAN PLATELET VOLUME 10.2 fl (9.6-12.3); MONO # 0.4 10*3/uL (0.1-1.0); MONO % 5.2 % (3.0-9.0); NEUT % 83.4 % (47.0-73.0); PLATELET COUNT AUTOMATED 214 10*3/uL (130-400); RED BLOOD COUNT 3.93 10*6/uL (4.50-5.90); RED CELL DISTRI WIDTH 12.5 % (0-14.5); WHITE BLOOD COUNT 8.4 10*3/uL (4.8-10.8)
[2020-11-28] VITALS: BP 163/82
[2020-11-28 08:00] VITALS: BP 189/76
[2020-11-28 12:00] VITALS: BP 184/72
[2020-11-28 16:00] VITALS: BP 178/64
[2020-11-28 21:20] VITALS: BP 114/87
[2020-11-29] VITALS: BP 178/72
[2020-11-29 06:28] LABS: BASO % 0.3 % (0.0-1.0); EOS # 0.1 10*3/uL (0.0-0.4); EOS % 0.5 % (1.0-4.0); HEMATOCRIT 34.1 % (42.0-52.0); LYMPH # 1.5 10*3/uL (1.3-4.4); MEAN CORPUSCULAR HGB 31.3 pg (27.0-31.0); MONO # 0.9 10*3/uL (0.1-1.0); MONO % 7.4 % (3.0-9.0); NEUT % 79.3 % (47.0-73.0); PLATELET COUNT AUTOMATED 188 10*3/uL (130-400); RED BLOOD COUNT 3.48 10*6/uL (4.50-5.90); RED CELL DISTRI WIDTH 12.8 % (0-14.5); WHITE BLOOD COUNT 12.6 10*3/uL (4.8-10.8)
[2020-11-29 06:37] LABS: ALBUMIN 2.1 gm/dl (3.1-4.5); CREATININE 1.94 mg/dL (0.70-1.30); POTASSIUM 3.6 mmol/L (3.5-5.1)
[2020-11-29 06:39] LABS: TOTAL PROTEIN 6.4 gm/dL (6.4-8.2)
[2020-11-29 08:00] VITALS: BP 160/80
[2020-11-29] MEDS ORDERED: COLACE100 MG PO (11:18)
[2020-11-29] MEDS ORDERED: HYDROCODONE-AC1 EAC1 PO (11:18)
[2020-11-29] MEDS ORDERED: ZOFRAN4 MG PO (11:18)
[2020-11-29 12:00] VITALS: BP 177/77
== END 2020-11-29 14:50 | disposition home or self-care (01) | DRG 417 ==
LOC: ED 12:49 → 5E 16:53 → EDHOLD 16:53 → 5E 11-27 14:32
PROVIDERS: Emergency Medicine; Student in an Organized Health Care Education/Training Program; ADMIT Internal Medicine; ATTEND Internal Medicine
PROC: 0FT44ZZ Resection of Gallbladder, Percutaneous Endoscopic Approach (ICD-10-PCS; principal; 2020-11-27)
PROC: 0DNU4ZZ Release Omentum, Percutaneous Endoscopic Approach (ICD-10-PCS; 2020-11-27)
PROC: 0DN84ZZ Release Small Intestine, Percutaneous Endoscopic Approach (ICD-10-PCS; 2020-11-27)
DX: K80.00 Calculus of gallbladder with acute cholecystitis without obstruction (principal); N17.0 Acute kidney failure with tubular necrosis; E44.0 Moderate protein-calorie malnutrition; D53.9 Nutritional anemia, unspecified; N18.32 Chronic kidney disease, stage 3b; E11.42 Type 2 diabetes mellitus with diabetic polyneuropathy; F17.210 Nicotine dependence, cigarettes, uncomplicated; K57.90 Diverticulosis of intestine, part unspecified, without perforation or abscess without bleeding; E87.6 Hypokalemia; I12.9 Hypertensive chronic kidney disease with stage 1 through stage 4 chronic kidney disease, or unspecified chronic kidney disease; E55.9 Vitamin D deficiency, unspecified; E11.65 Type 2 diabetes mellitus with hyperglycemia; K66.0 Peritoneal adhesions (postprocedural) (postinfection); E11.22 Type 2 diabetes mellitus with diabetic chronic kidney disease; R74.01 Elevation of levels of liver transaminase levels; E78.5 Hyperlipidemia, unspecified; Z71.6 Tobacco abuse counseling; Z88.6 Allergy status to analgesic agent; Z90.49 Acquired absence of other specified parts of digestive tract; Z80.8 Family history of malignant neoplasm of other organs or systems; Z79.899 Other long term (current) drug therapy; Z79.82 Long term (current) use of aspirin; Z68.30 Body mass index [BMI] 30.0-30.9, adult

== ENCOUNTER 2020-12-15 16:33 | Emergency (ER) | payer MEDICARE ==
[~2020-12-15] VITALS: Ht 175.2 cm; Wt 86.2 kg
[~2020-12-15 16:33] MED LIST changes: +ASPIRIN ADULT L81 M1 PO; +CLONIDINE1 EAC1 T; +COLACE100 MG PO; +HYDROCODONE-AC1 EAC1 PO
[2020-12-15 18:35] LABS: BASO # 0.1 10*3/uL (0.0-0.1); BASO % 0.5 % (0.0-1.0); EOS # 0.1 10*3/uL (0.0-0.4); EOS % 1.1 % (1.0-4.0); HEMATOCRIT 35.7 % (42.0-52.0); LYMPH # 1.4 10*3/uL (1.3-4.4); LYMPH % 12.9 % (27.0-41.0); MEAN CELL VOLUME 97.5 fl (80.0-94.0); MEAN CORPUSCULAR HGB 30.3 pg (27.0-31.0); MEAN CORPUSCULAR HGB CONC 31.1 g/dl (33.0-37.0); MEAN PLATELET VOLUME 9.8 fl (9.6-12.3); MONO # 0.7 10*3/uL (0.1-1.0); MONO % 6.6 % (3.0-9.0); NEUT # 8.7 10*3/uL (2.3-7.9); NEUT % 78.5 % (47.0-73.0); PLATELET COUNT AUTOMATED 307 10*3/uL (130-400); RED BLOOD COUNT 3.66 10*6/uL (4.50-5.90); RED CELL DISTRI WIDTH 12.8 % (0-14.5); WHITE BLOOD COUNT 11.1 10*3/uL (4.8-10.8)
[2020-12-15 18:47] LABS: ACT PARTIAL THROMBO TIME 26.8 SECONDS (20.0-32.1)
[2020-12-15 18:52] LABS: ALBUMIN 2.4 gm/dl (3.1-4.5); ALKALINE PHOSPHATASE 424 U/L (45-117); BUN 15 mg/dl (7-24); CHLORIDE 102 mmol/L (98-107); CREATININE 1.73 mg/dL (0.70-1.30); LIPASE 80 U/L (73-393); POTASSIUM 3.6 mmol/L (3.5-5.1); SGOT/AST 287 IU/L (3-35); SGPT/ALT 360 U/L (12-78); SODIUM 137 mmol/L (136-145); TOTAL PROTEIN 6.9 gm/dL (6.4-8.2)
[2020-12-15 18:53] LABS: TROPONIN I < 0.015 ng/ml (<0.045)
[2020-12-16] MEDS ORDERED: TOPROL XL50 M1 PO (17:34)
[2020-12-16] MEDS ORDERED: ALOGLIPTIN12.5 MG PO (17:40)
[2020-12-17] MEDS ORDERED: CLONIDINE1 EAC1 T (21:41)
[2020-12-18] MEDS ORDERED: DOXYCYCLINE100 M3 PO (09:39)
== END 2020-12-15 21:21 | disposition home or self-care (01) ==
LOC: ED 16:33
PROVIDERS: Emergency Medicine
DX: N18.32 Chronic kidney disease, stage 3b (principal); D53.9 Nutritional anemia, unspecified; R74.01 Elevation of levels of liver transaminase levels; E88.09 Other disorders of plasma-protein metabolism, not elsewhere classified; R10.11 Right upper quadrant pain; R94.5 Abnormal results of liver function studies; R79.82 Elevated C-reactive protein (CRP); F17.200 Nicotine dependence, unspecified, uncomplicated; Z98.890 Other specified postprocedural states; Z88.6 Allergy status to analgesic agent; Z79.899 Other long term (current) drug therapy; Z79.82 Long term (current) use of aspirin; Z90.49 Acquired absence of other specified parts of digestive tract

== ENCOUNTER 2020-12-27 16:22 | Inpatient (IN) | payer MEDICARE ==
[~2020-12-27] VITALS: Ht 172.7 cm; Wt 85.5 kg
[~2020-12-27 16:22] MED LIST changes: +ALOGLIPTIN12.5 MG PO; +DOXYCYCLINE100 M3 PO; +TOPROL XL50 M1 PO
[2020-12-27 16:31] VITALS: BP 129/61
[2020-12-27 17:48] LABS: BASO % 0.4 % (0.0-1.0); EOS # 0.1 10*3/uL (0.0-0.4); EOS % 1.4 % (1.0-4.0); HEMATOCRIT 34.1 % (42.0-52.0); LYMPH # 1.4 10*3/uL (1.3-4.4); LYMPH % 19.9 % (27.0-41.0); MEAN CORPUSCULAR HGB 30.6 pg (27.0-31.0); MEAN CORPUSCULAR HGB CONC 32.3 g/dl (33.0-37.0); MEAN PLATELET VOLUME 9.8 fl (9.6-12.3); MONO # 0.5 10*3/uL (0.1-1.0); MONO % 7.1 % (3.0-9.0); NEUT % 70.8 % (47.0-73.0); PLATELET COUNT AUTOMATED 226 10*3/uL (130-400); RED BLOOD COUNT 3.59 10*6/uL (4.50-5.90); RED CELL DISTRI WIDTH 13.1 % (0-14.5); WHITE BLOOD COUNT 7.1 10*3/uL (4.8-10.8)
[2020-12-27 18:05] LABS: ALBUMIN 2.6 gm/dl (3.1-4.5); CREATININE 1.8 mg/dL (0.70-1.30); POTASSIUM 3.5 mmol/L (3.5-5.1)
[2020-12-27 20:25] VITALS: BP 128/61; BP 129/61
[2020-12-27 23:00] VITALS: BP 139/78
[2020-12-27 23:54] VITALS: BP 166/58
[2020-12-28 02:32] VITALS: BP 143/60
[2020-12-28 06:11] LABS: BASO % 0.5 % (0.0-1.0); EOS % 0.2 % (1.0-4.0); HEMATOCRIT 30.9 % (42.0-52.0); LYMPH % 11.7 % (27.0-41.0); MEAN CORPUSCULAR HGB 30.7 pg (27.0-31.0); MEAN PLATELET VOLUME 10.3 fl (9.6-12.3); MONO # 0.4 10*3/uL (0.1-1.0); MONO % 5.3 % (3.0-9.0); NEUT # 6.8 10*3/uL (2.3-7.9); NEUT % 81.9 % (47.0-73.0); PLATELET COUNT AUTOMATED 226 10*3/uL (130-400); RED BLOOD COUNT 3.22 10*6/uL (4.50-5.90); RED CELL DISTRI WIDTH 13.2 % (0-14.5); WHITE BLOOD COUNT 8.3 10*3/uL (4.8-10.8)
[2020-12-28 06:22] LABS: ALBUMIN 2.4 gm/dl (3.1-4.5); CREATININE 1.91 mg/dL (0.70-1.30); POTASSIUM 3.9 mmol/L (3.5-5.1); TOTAL PROTEIN 6.1 gm/dL (6.4-8.2)
[2020-12-28 08:00] VITALS: BP 146/60
[2020-12-28 12:00] VITALS: BP 141/64
[2020-12-28 16:00] VITALS: BP 157/66
[2020-12-28 20:00] VITALS: BP 162/68
[2020-12-29] VITALS: BP 150/65; BP 180/68; BP 180/69
[2020-12-29 00:12] VITALS: BP 150/65
[2020-12-29 06:15] LABS: ALBUMIN 2.6 gm/dl (3.1-4.5); CREATININE 1.98 mg/dL (0.70-1.30); POTASSIUM 3.7 mmol/L (3.5-5.1); TOTAL PROTEIN 6.8 gm/dL (6.4-8.2)
[2020-12-29 06:47] LABS: BASO # 0.1 10*3/uL (0.0-0.1); BASO % 0.7 % (0.0-1.0); EOS # 0.4 10*3/uL (0.0-0.4); EOS % 5.3 % (1.0-4.0); HEMATOCRIT 35.9 % (42.0-52.0); LYMPH # 1.7 10*3/uL (1.3-4.4); LYMPH % 20.8 % (27.0-41.0); MEAN CELL VOLUME 96.2 fl (80.0-94.0); MEAN CORPUSCULAR HGB 30.8 pg (27.0-31.0); MEAN PLATELET VOLUME 10.3 fl (9.6-12.3); MONO # 0.6 10*3/uL (0.1-1.0); MONO % 6.9 % (3.0-9.0); NEUT # 5.3 10*3/uL (2.3-7.9); NEUT % 65.8 % (47.0-73.0); PLATELET COUNT AUTOMATED 257 10*3/uL (130-400); RED BLOOD COUNT 3.73 10*6/uL (4.50-5.90); RED CELL DISTRI WIDTH 13.4 % (0-14.5); WHITE BLOOD COUNT 8.1 10*3/uL (4.8-10.8)
[2020-12-29 08:00] VITALS: BP 165/65
[2020-12-29 12:00] VITALS: BP 158/61
[2020-12-29 16:00] VITALS: BP 182/74
[2020-12-29 20:00] VITALS: BP 175/78
[2020-12-30] VITALS: BP 122/54
[2020-12-30 07:08] LABS: BILIRUBIN Negative (Negative); BLOOD Negative (Negative); CLARITY Clear (Clear); COLOR Yellow (Yellow); GLUCOSE Trace (Negative); KETONE Negative (Negative); LEUKO ESTERASE Negative (Negative); NITRITE Negative (Negative); PH 7.5 (4.5-8.0); SPECIFIC GRAVITY 1.015 (1.001-1.030)
[2020-12-30 08:00] VITALS: BP 174/71
[2020-12-30 10:44] LABS: ALBUMIN 2.3 gm/dl (3.1-4.5); BILIRUBIN, DIRECT 0.3 mg/dL (0.0-0.2); TOTAL PROTEIN 6.6 gm/dL (6.4-8.2)
[2020-12-30] MEDS ORDERED: HYDROCODONE-AC1 EAC1 PO (12:25)
[2020-12-30] MEDS ORDERED: FLAGYL500 MG PO (12:28)
[2020-12-30] MEDS ORDERED: CIPRO500 MG PO (12:28)
== END 2020-12-30 13:55 | disposition home or self-care (01) | DRG 444 ==
LOC: ED 16:22 → EDHOLD 21:31 → 5E 21:31
PROVIDERS: Hospitalist; Internal Medicine; Internal Medicine Gastroenterology; Physician Assistant; ADMIT Internal Medicine; ATTEND Internal Medicine
DX: K81.0 Acute cholecystitis (principal); E43 Unspecified severe protein-calorie malnutrition; E78.5 Hyperlipidemia, unspecified; E55.9 Vitamin D deficiency, unspecified; K57.90 Diverticulosis of intestine, part unspecified, without perforation or abscess without bleeding; N18.32 Chronic kidney disease, stage 3b; D53.9 Nutritional anemia, unspecified; E11.42 Type 2 diabetes mellitus with diabetic polyneuropathy; E11.65 Type 2 diabetes mellitus with hyperglycemia; F17.210 Nicotine dependence, cigarettes, uncomplicated; Z71.6 Tobacco abuse counseling; Z88.5 Allergy status to narcotic agent; Z88.8 Allergy status to other drugs, medicaments and biological substances; Z90.49 Acquired absence of other specified parts of digestive tract; Z68.28 Body mass index [BMI] 28.0-28.9, adult

== ENCOUNTER → 2021-07-29 | Outpatient (CLI) | payer OTHER ==
[~2021-07-29] MED LIST changes: +CIPRO500 MG PO; +FLAGYL500 MG PO
== END | disposition home or self-care (01) ==
LOC: MRI 10:46
PROVIDERS: ATTEND Nurse Practitioner Family
DX: I67.89 Other cerebrovascular disease (principal); R25.1 Tremor, unspecified

== ENCOUNTER 2023-04-30 20:38 | Emergency (ER) | payer MEDICARE ==
[~2023-04-30] VITALS: Ht 177.8 cm; Wt 90.7 kg
[2023-04-30 22:28] LABS: BASO # 0.1 10*3/uL (0.0-0.1); BASO % 0.6 % (0.0-1.0); EOS # 0.2 10*3/uL (0.0-0.4); EOS % 1.9 % (1.0-4.0); HEMATOCRIT 39.3 % (42.0-52.0); LYMPH # 1.8 10*3/uL (1.3-4.4); LYMPH % 20.9 % (27.0-41.0); MEAN CELL VOLUME 95.9 fl (80.0-94.0); MEAN CORPUSCULAR HGB 32.9 pg (27.0-31.0); MEAN CORPUSCULAR HGB CONC 34.4 g/dl (33.0-37.0); MEAN PLATELET VOLUME 10.1 fl (9.6-12.3); MONO % 12.2 % (3.0-9.0); NEUT # 5.5 10*3/uL (2.3-7.9); NEUT % 63.8 % (47.0-73.0); PLATELET COUNT AUTOMATED 192 10*3/uL (130-400); RED CELL DISTRI WIDTH 13.5 % (0-14.5); WHITE BLOOD COUNT 8.6 10*3/uL (4.8-10.8)
[2023-04-30 22:39] LABS: ACT PARTIAL THROMBO TIME 30.8 SECONDS (20.0-32.1)
[2023-04-30 22:49] LABS: POTASSIUM 3.8 mmol/L (3.4-5.1); TOTAL PROTEIN 6.8 gm/dL (6.0-8.0)
[2023-04-30 23:34] LABS: BILIRUBIN Negative (Negative); BLOOD Trace-Lysed (Negative); CLARITY Clear (Clear); COLOR Yellow (Yellow); GLUCOSE 1+ (Negative); KETONE Negative (Negative); LEUKO ESTERASE Negative (Negative); NITRITE Negative (Negative); PH 6.5 (4.5-8.0); UROBILINOGEN 0.2 E.U./dl (0.0-1.0)
[2023-04-30 23:45] LABS: FINE GRANULAR CAST 0-2; MUCOUS 1+
[2023-05-01] MEDS ORDERED: AMOX-CLAV 875-1 EACH PO (00:27)
== END 2023-05-01 00:35 | disposition home or self-care (01) ==
LOC: ED 20:38
PROVIDERS: Internal Medicine
DX: U07.1 COVID-19 (principal); F17.200 Nicotine dependence, unspecified, uncomplicated; Z88.6 Allergy status to analgesic agent; Z79.899 Other long term (current) drug therapy; Z79.2 Long term (current) use of antibiotics; Z79.82 Long term (current) use of aspirin; Z90.49 Acquired absence of other specified parts of digestive tract; Z98.890 Other specified postprocedural states

== ENCOUNTER 2024-03-30 12:54 | Inpatient (IN) | payer OTHER ==
[~2024-03-30] VITALS: Ht 175.2 cm
[~2024-03-30 12:54] MED LIST changes: +AMOX-CLAV 875-1 EACH PO
[2024-03-30 13:02] VITALS: BP 175/76
[2024-03-30] MEDS ORDERED: SODIUM CHLORIDE 0.9% 1,000 ML IV ONE ×2 (13:15→16:35)
[2024-03-30 13:40] LABS: BASO # 0.1 10*3/uL (0.0-0.1); BASO % 0.8 % (0.0-1.0); EOS # 0.8 10*3/uL (0.0-0.4); EOS % 8.5 % (1.0-4.0); HEMATOCRIT 39.5 % (42.0-52.0); LYMPH # 2.7 10*3/uL (1.3-4.4); LYMPH % 28.5 % (27.0-41.0); MEAN CELL VOLUME 100.3 fl (80.0-94.0); MEAN CORPUSCULAR HGB CONC 32.9 g/dl (33.0-37.0); MONO # 0.6 10*3/uL (0.1-1.0); MONO % 6.7 % (3.0-9.0); NEUT # 5.2 10*3/uL (2.3-7.9); NEUT % 54.9 % (47.0-73.0); PLATELET COUNT AUTOMATED 202 10*3/uL (130-400); RED BLOOD COUNT 3.94 10*6/uL (4.50-5.90); RED CELL DISTRI WIDTH 13.8 % (0-14.5); WHITE BLOOD COUNT 9.5 10*3/uL (4.8-10.8)
[2024-03-30 14:36] LABS: BILIRUBIN Negative (Negative); BLOOD Negative (Negative); CLARITY Clear (Clear); COLOR Yellow (Yellow); GLUCOSE 3+ (Negative); KETONE Negative (Negative); LEUKO ESTERASE Negative (Negative); NITRITE Negative (Negative); SPECIFIC GRAVITY 1.015 (1.001-1.030); UROBILINOGEN 0.2 E.U./dl (0.0-1.0)
[2024-03-30] MEDS ORDERED: Ondansetron Hydrochloride 4 MG/2 ML VIAL IV PRN (15:50)
[2024-03-30] MEDS ORDERED: Magnesium Hydroxide 30 ML UDC PO PRN (15:50)
[2024-03-30] MEDS ORDERED: ACETAMINOPHEN 650 MG SUPP R PRN (15:50)
[2024-03-30] MEDS ORDERED: BISACODYL 10 MG SUPP R PRN (15:50)
[2024-03-30] MEDS ORDERED: ACETAMINOPHEN 325 MG TAB PO PRN (15:50)
[2024-03-30] MEDS ORDERED: BISACODYL 5 MG TAB PO PRN (15:50)
[2024-03-30] MEDS ORDERED: DEXTROSE 10 % IN WATER 250 ML IV PRN (15:50)
[2024-03-30] MEDS ORDERED: LASIX40 MG PO (16:23)
[2024-03-30] MEDS ORDERED: JARDIANCE25 MG PO (16:23)
[2024-03-30] MEDS ORDERED: ALLOPURINOL300 MG PO (16:24)
[2024-03-30] MEDS ORDERED: VITAMIN D350 MCG PO (16:24)
[2024-03-30] MEDS ORDERED: Mysoline50 MG PO (16:24)
[2024-03-30] MEDS ORDERED: OMEPRAZOLE MAGN20 MG PO (16:25)
[2024-03-30] MEDS ORDERED: FISH OIL 1,0001 EAC1 PO (16:25)
[2024-03-30] MEDS ORDERED: INSULIN LISPRO 1 UNIT/0.01 ML SQ SCH (16:30)
[2024-03-30 16:54] VITALS: BP 189/77
[2024-03-30] MEDS ORDERED: COLCHICINE0.6 M2 PO (17:54)
[2024-03-30] MEDS ORDERED: Lopressor25 MG PO (17:55)
[2024-03-30] MEDS ORDERED: ZESTRIL40 MG PO (17:56)
[2024-03-30] MEDS ORDERED: Cholecalciferol 2,000 UNIT TABLET (50 MCG) PO SCH (18:00)
[2024-03-30] MEDS ORDERED: cloNIDine Hydrochloride 0.1 MG TAB PO ONE (18:00)
[2024-03-30] MEDS ORDERED: OMEPRAZOLE 20 MG CAP PO SCH (18:00)
[2024-03-30 18:47] VITALS: BP 163/73
[2024-03-30 19:21] VITALS: BP 153/68
[2024-03-30 20:00] VITALS: BP 180/77
[2024-03-30] MEDS ORDERED: ATORVASTATIN CALCIUM 80 MG TAB PO SCH (22:00)
[2024-03-30] MEDS ORDERED: GABAPENTIN 300 MG CAP PO SCH (22:00)
[2024-03-30] MEDS ORDERED: PRIMIDONE 50 MG TAB PO SCH (22:00)
[2024-03-31] VITALS: BP 174/79
[2024-03-31 06:01] LABS: BASO # 0.1 10*3/uL (0.0-0.1); EOS # 0.7 10*3/uL (0.0-0.4); EOS % 8.4 % (1.0-4.0); HEMATOCRIT 37.7 % (42.0-52.0); LYMPH # 2.7 10*3/uL (1.3-4.4); LYMPH % 31.3 % (27.0-41.0); MEAN CELL VOLUME 97.7 fl (80.0-94.0); MEAN CORPUSCULAR HGB 32.4 pg (27.0-31.0); MEAN CORPUSCULAR HGB CONC 33.2 g/dl (33.0-37.0); MEAN PLATELET VOLUME 10.1 fl (9.6-12.3); MONO # 0.6 10*3/uL (0.1-1.0); MONO % 7.1 % (3.0-9.0); NEUT # 4.5 10*3/uL (2.3-7.9); NEUT % 51.5 % (47.0-73.0); PLATELET COUNT AUTOMATED 186 10*3/uL (130-400); RED BLOOD COUNT 3.86 10*6/uL (4.50-5.90); WHITE BLOOD COUNT 8.7 10*3/uL (4.8-10.8)
[2024-03-31 06:41] LABS: FREE T4 1.19 ng/dl (0.89-1.76); POTASSIUM 3.6 mmol/L (3.4-5.1); TOTAL PROTEIN 6.5 gm/dL (6.0-8.0)
[2024-03-31 06:53] LABS: VITAMIN D, 25-HYDROXY 47.5 ng/mL (30-100)
[2024-03-31 08:00] VITALS: BP 150/67
[2024-03-31] MEDS ORDERED: Enoxaparin Sodium 30 MG/0.3 ML SYR SC SCH (10:00)
[2024-03-31] MEDS ORDERED: ASPIRIN, CHEWABLE 81 MG TAB PO SCH (10:00)
[2024-03-31] MEDS ORDERED: ALLOPURINOL 300 MG TAB PO SCH (10:00)
[2024-03-31] MEDS ORDERED: amLODIPine besylate 10 MG TAB PO SCH (10:00)
[2024-03-31] MEDS ORDERED: LOPRESSOR25 MG PO (11:30)
[2024-03-31 12:00] VITALS: BP 158/65
== END 2024-03-31 13:22 | disposition home or self-care (01) | DRG 683 ==
LOC: ED 12:54 → EDHOLD 15:36 → 4E 19:43
PROVIDERS: Emergency Medicine; Student in an Organized Health Care Education/Training Program; ADMIT Internal Medicine; ATTEND Internal Medicine
DX: N17.9 Acute kidney failure, unspecified (principal); E87.1 Hypo-osmolality and hyponatremia; I50.32 Chronic diastolic (congestive) heart failure; I13.0 Hypertensive heart and chronic kidney disease with heart failure and stage 1 through stage 4 chronic kidney disease, or unspecified chronic kidney disease; N18.4 Chronic kidney disease, stage 4 (severe); K21.9 Gastro-esophageal reflux disease without esophagitis; E11.22 Type 2 diabetes mellitus with diabetic chronic kidney disease; D53.9 Nutritional anemia, unspecified; R53.81 Other malaise; R81 Glycosuria; E11.65 Type 2 diabetes mellitus with hyperglycemia; E11.42 Type 2 diabetes mellitus with diabetic polyneuropathy; E78.2 Mixed hyperlipidemia; E55.9 Vitamin D deficiency, unspecified; M1A.9XX0 Chronic gout, unspecified, without tophus (tophi); E53.8 Deficiency of other specified B group vitamins; Z88.6 Allergy status to analgesic agent; Z90.49 Acquired absence of other specified parts of digestive tract

== ENCOUNTER → 2024-05-18 | Outpatient (CLI) | payer OTHER ==
[~2024-05-18] MED LIST changes: +ALLOPURINOL300 MG PO; +COLCHICINE0.6 M2 PO; +FISH OIL 1,0001 EAC1 PO; +JARDIANCE25 MG PO; +LASIX40 MG PO; +LOPRESSOR25 MG PO; +Lopressor25 MG PO; +Mysoline50 MG PO; +OMEPRAZOLE MAGN20 MG PO; +VITAMIN D350 MCG PO; +ZESTRIL40 MG PO
== END | disposition home or self-care (01) ==
LOC: US 09:54
PROVIDERS: ATTEND Internal Medicine Nephrology
DX: N18.32 Chronic kidney disease, stage 3b (principal)